=== PATIENT | male | born 1985 | race Two or more races ===

== ENCOUNTER 2023-09-19 07:09 | Emergency (ER) | payer OTHER ==
[~2023-09-19] VITALS: Ht 175.3 cm; Wt 104.3 kg
[2023-09-19 07:14] VITALS: BP 135/89; TEMP 98.4
[2023-09-19] MEDS ORDERED: CIPR7.5D9 EACH EAR (07:32)
[2023-09-19 08:05] VITALS: O2SAT 98
== END 2023-09-19 08:06 | disposition home or self-care (01) ==
LOC: ER 07:12
DX: H60.93 Unspecified otitis externa, bilateral (principal); Z60.2 Problems related to living alone